=== PATIENT | female | born 2000 | race African-American/Black ===

== ENCOUNTER 2020-11-25 14:16 | Emergency (ER) | payer SELFPAY ==
[~2020-11-25] VITALS: Ht 177.8 cm; Wt 59.1 kg
[2020-11-25 14:56] LABS: BILIRUBIN,URINE NEGATIVE (NEG); CLARITY,URINE CLEAR; COLOR,URINE YELLOW; NITRITE,URINE NEGATIVE (NEG); PROTEIN,URINE NEGATIVE (NEG-TRACE); UROBILINOGEN,URINE 0.2 mg/dL (0.2 mg/dL)
[2020-11-25 15:01] LABS: RBC,URINE >40 /HPF (0-2)
[2020-11-25 15:02] LABS: BACTERIA,URINE MODERATE /HPF (0-FEW)
[2020-11-25 15:04] LABS: BARBITURATES NEG (NEG); BENZODIAZEPINES NEG (NEG); CANNABINOIDS POS (NEG); COCAINE NEG (NEG); METHADONE NEG (NEG); OPIATES NEG (NEG); PHENCYCLIDINE NEG (NEG)
[2020-11-25 15:06] LABS: AMPHETAMINE/METHAMPHETAMINE NEG (NEG)
--- NOTE | 2020-11-25 15:22 | PHYS DOC ---
Past Medical History Past Surgical History: No Surgical History Smoking Status: Never Smoker Alcohol Use: None General Adult EDM: Chief Complaint: ABDOMINAL PAIN HPI: HPI: Patient is a 20 year old female who presents with complaints of upper right and mid abdominal pain especially after she eats food but today she did not eat any food and is becoming more constant. Is been going on for least a year. She states today is just more constant. She rates her pain a 7 out of 10. She states that she has never had her gallbladder checked out. She denies nausea, vomiting, diarrhea, fever, constipation, chest pain, shortness of breath, cough, headache, dizziness, STD concerns, vaginal discharge, urinary symptoms, back pain. She does take control and she is currently on her menstrual cycle of which she states this is the second menstrual cycle of this month. Review of Systems: Review of Systems: Constitutional: Denies fever or chills. [] Eyes: Denies change in visual acuity. [] HENT: Denies nasal congestion or sore throat. [] Respiratory: Denies cough or shortness of breath. [] Cardiovascular: Denies chest pain or edema. [] GI: + abdominal pain, denies nausea, vomiting, bloody stools or diarrhea. [] : Denies dysuria. [] Musculoskeletal: Denies back pain or joint pain. [] Integument: Denies rash. [] Neurologic: Denies headache, focal weakness or sensory changes. [] Endocrine: Denies polyuria or polydipsia. [] Lymphatic: Denies swollen glands. [] Psychiatric: Denies depression or anxiety. [] Heart Score: C/O Chest Pain: No Allergies: Allergies: Allergies Coded Allergies Type Severity Reaction Last Updated Verified No Known Allergies Allergy Unknown 11/25/20 Yes Physical Exam: PE: Constitutional: Well developed, well nourished, no acute distress, non-toxic carmen earance. [] HENT: Normocephalic, atraumatic, bilateral external ears normal, oropharynx moist, no oral exudates, nose normal. [] Eyes: PERRLA, EOMI, conjunctiva normal, no discharge. [] Neck: Normal range of motion, no tenderness, supple, no stridor. [] Cardiovascular:Heart rate regular rhythm, no murmur [] Lungs & Thorax: Bilateral breath sounds clear to auscultation [] Abdomen: Bowel sounds normal, soft, right upper quadrant tenderness, no masses, no pulsatile masses. [] Skin: Warm, dry, no erythema, no rash. [] Back: No tenderness, no CVA tenderness. [] Extremities: No tenderness, no cyanosis, no clubbing, ROM intact, no edema. [] Neurologic: Alert and oriented X 3, normal motor function, normal sensory function, no focal deficits noted. [] Psychologic: Affect normal, judgement normal, mood normal. [] Current Patient Data: Labs: Laboratory Tests Test 11/25/20 14:46 11/25/20 14:50 Urine Collection Type Unknown Urine Color Yellow Urine Clarity Clear Urine pH 6.0 (<5.0-8.0) Urine Specific [place] 1.020 (1.000-1.030) Urine Protein Negative mg/dL (NEG-TRACE) Urine Glucose (UA) Negative mg/dL (NEG) Urine Ketones (Stick) Negative mg/dL (NEG) Urine Blood Large (NEG) Urine Nitrite Negative (NEG) Urine Bilirubin Negative (NEG) Urine Urobilinogen Dipstick 0.2 mg/dL (0.2 mg/dL) Urine Leukocyte Esterase Negative (NEG) Urine RBC >40 /HPF (0-2) Urine WBC 1-4 /HPF (0-4) Urine Squamous Epithelial Cells Mod /LPF Urine Bacteria Moderate /HPF (0-FEW) Urine Mucus Mod /LPF Urine Opiates Screen Neg (NEG) Urine Methadone Screen Neg (NEG) Urine Barbiturates Neg (NEG) Urine Phencyclidine Screen Neg (NEG) Urine Amphetamine/Methamphetamine Neg (NEG) Urine Benzodiazepines Screen Neg (NEG) Urine Cocaine Screen Neg (NEG) Urine Cannabinoids Screen Pos (NEG) Urine Ethyl Alcohol Neg (NEG) POC Urine HCG, Qualitative Hcg negative (Negative) Vital Signs: Vital Signs Date Time Temp Pulse Resp B/P (MAP) Pulse Ox O2 Delivery O2 Flow Rate FiO2 11/25/20 14:57 98.6 66 18 142/79 (100) 100 Room Air 98.6 EKG: EKG: [] Radiology/Procedures: Radiology/Procedures: [] Impression: [facility] [address] [place] [address] IMAGING REPORT Signed PATIENT: AZAEL CHAPARRO ACCOUNT: [id number] : 2000 LOCATION: ER AGE: 20 SEX: F EXAM STATUS: REG ER ORD. PHYSICIAN: SUJATHA STOCKTON APRN REASON: right upper and epigastric pain and nausea after eating PROCEDURE: CT ABD PELV W/ IV CONTRST ONLY EXAM: CT Abdomen and Pelvis with IV contrast CLINICAL HISTORY: right upper and epigastric pain and nausea after eating COMPARISON: none TECHNIQUE: Helical CT of the abdomen and pelvis was performed following the administration of intravenous contrast. Axial, coronal and sagittal reformatted images were generated. PQRS compliance statement - One or more of the following individualized dose reduction techniques were utilized for this study: 1. Automated exposure control 2. Adjustment of the mA and/or kV according to patient size 3. Use of iterative reconstruction technique FINDINGS: Lower Chest: Lung bases are clear. Abdomen and Pelvis: Subcentimeter hypodense hepatic dome lesion is too small to accurately characterize possibly cystic. Focal hepatic low-attenuation along the falciform ligament likely focal fatty infiltration. Gallbladder is normal. No biliary ductal dilatation. Pancreas is unremarkable. Spleen is normal in appearance. Adrenal glands are normal. Symmetric nephrograms. No focal renal lesion. No hydronephrosis. Moderate colonic stool content is seen. Appendix is normal. No small or large bowel dilatation. No bowel obstruction. Uterus and adnexa are grossly unremarkable. No free or loculated abdominal or pelvic collection. No pneumoperitoneum. No lymphadenopathy. Aorta is normal in caliber. Bones: No aggressive osseous lesion is seen. IMPRESSION: 1. No CT evidence for acute abdominal process. 2. Focal hepatic low-attenuation along the falciform ligament may represent focal fatty infiltration. 3. Moderate colonic stool content. No bowel obstruction. 4. Appendix is normal. Electronically signed by: Jensen Griffith MD (11/25/2020 4:38 PM) [facility] DICTATED and SIGNED BY: JENSEN GRIFFITH MD DATE: 11/25/20 [id number] 0 Course & Med Decision Making: Course & Med Decision Making Pertinent Labs and Imaging studies reviewed. (See chart for details) See HPI. Alert and oriented x4. Ambulatory with steady gait. Speaks in full c lear sentences. No CVA tenderness. Skin pink warm and dry. Vital signs are within normal limits. Afebrile. Mucous membranes moist. Abdomen soft but slightly tender to the right upper quadrant epigastric area. She is not guarding and there is no rigidity. Lab work unremarkable. Urinalysis shows no infection. CT abdomen pelvis shows moderate stool in the abdomen. Patient is tolerating p.o. intake. [] Dragon Disclaimer: Dragon Disclaimer: This electronic medical record was generated, in whole or in part, using a voice recognition dictation system. Departure Departure Impression: Primary Impression: Abdominal pain Qualified Codes: R10.13 - Epigastric pain Additional Impression: Constipated Qualified Codes: K59.00 - Constipation, unspecified Disposition: HOME / SELF CARE / HOMELESS Condition: STABLE Referrals: NO PCP (PCP) ALBINA HALL MD Patient Instructions: Constipation, Adult Additional Instructions: Follow-up with your primary care doctor or you can go to a GI doctor as I have referred you to. Drink plenty of fluid. Take medication as prescribed. If you begin vomiting cannot keep down fluids or you start running a fever or have worsening pain return emergency room. Scripts Famotidine (PEPCID) 20 Mg Tablet 20 MG PO BID for 7 Days, #14 TAB Prov: SUJATHA STOCKTON APRN 11/25/20 Polyethylene Glycol 3350 (MIRALAX) 17 Gm Powd.pack 1 PACKET PO DAILY for constipation for 5 Days, #5 PACKET 0 Refills dissolve in water Prov: SUJATHA STOCKTON APRN 11/25/20 SUJATHA STOCKTON APRN Nov 25, 2020 15:22
[2020-11-25] MEDS ORDERED: IV NORMAL SALINE 1000ML BAG 1,000 ML IV ONE (15:30)
[2020-11-25 15:44] LABS: BASO # 0.1 x10^3/uL (0.0-0.2); BASO % 1 % (0-3); EOS # 0.4 x10^3/uL (0.0-0.7); EOS % 5 % (0-3); HEMATOCRIT 34.8 % (36.0-47.0); HEMOGLOBIN 11.3 g/dL (12.0-15.5); LYMPH # 2.7 x10^3/uL (1.0-4.8); LYMPH % 40 % (24-48); MEAN CORPUSCULAR HEMOGLOBIN 27 pg (25-35); MEAN CORPUSCULAR HGB CONC 32 g/dL (31-37); MEAN CORPUSCULAR VOLUME 83 fL (79-100); MONO # 0.3 x10^3/uL (0.0-1.1); MONO % 4 % (0-9); NEUT # 3.4 x10^3/uL (1.8-7.7); NEUT % 50 % (31-73); PLATELET COUNT 298 x10^3/uL (140-400); RED BLOOD COUNT 4.18 x10^6/uL (3.50-5.40); RED CELL DISTRIBUTION WIDTH 16.5 % (11.5-14.5); WHITE BLOOD COUNT 6.9 x10^3/uL (4.0-11.0)
[2020-11-25] MEDS ORDERED: IOHEXOL 300 MG/ML 100ML VIAL. IV ONE (16:00)
[2020-11-25] MEDS ORDERED: CONTRAST GIVEN. MC PRN (16:00)
[2020-11-25 16:02] LABS: CALCIUM 8.5 mg/dL (8.5-10.1); CREATININE 0.9 mg/dL (0.6-1.0); GFR 95.6; POTASSIUM 3.8 mmol/L (3.5-5.1)
[2020-11-25 16:12] LABS: ALBUMIN 3.7 g/dL (3.4-5.0); ALBUMIN/GLOBULIN RATIO 0.9 (1.0-1.7); TOTAL BILIRUBIN 0.5 mg/dL (0.2-1.0); TOTAL PROTEIN 7.6 g/dL (6.4-8.2)
[2020-11-25 16:40] VITALS: BP 116/68
--- NOTE | 2020-11-25 16:40 | RAD ---
EXAM: CT Abdomen and Pelvis with IV contrast CLINICAL HISTORY: right upper and epigastric pain and nausea after eating COMPARISON: none TECHNIQUE: Helical CT of the abdomen and pelvis was performed following the administration of intrave nous contrast. Axial, coronal and sagittal reformatted images were generated. PQRS compliance statement - One or more of the following individualized dose reduction techniques wer e utilized for this study: 1. Automated exposure control 2. Adjustment of the mA and/or kV according to patient size 3. Use of iterative reconstruction technique FINDINGS: Lower Chest: Lung bases are clear. Abdomen and Pelvis: Subcentimeter hypodense hepatic dome lesion is too small to accurately characterize possibly cystic. Focal hepatic low-attenuation along the falciform ligament likely focal fatty infiltration. Gallbladd er is normal. No biliary ductal dilatation. Pancreas is unremarkable. Spleen is normal in appearance. Adrenal glands are normal. Symmetric nephrograms. No focal renal lesion. No hydronephrosis. Moderate colonic stool content is seen. Appendix is normal. No small or large bowel dilatation. No michi wel obstruction. Uterus and adnexa are grossly unremarkable. No free or loculated abdominal or pelvic collection. No pneumoperitoneum. No lymphadenopathy. Aorta i s normal in caliber. Bones: No aggressive osseous lesion is seen. IMPRESSION: 1. No CT evidence for acute abdominal process. 2. Focal hepatic low-attenuation along the falciform ligament may represent focal fatty infiltration . 3. Moderate colonic stool content. No bowel obstruction. 4. Appendix is normal. Electronically signed by: Jensen Dhillon MD (11/25/2020 4:38 PM) [facility]
[2020-11-25] MEDS ORDERED: POLY17PO29 PO (16:49)
[2020-11-25] MEDS ORDERED: FAMO-63 PO (16:50)
== END 2020-11-25 17:02 | disposition home or self-care (01) ==
LOC: ER 14:40
DX: K59.00 Constipation, unspecified (principal); R10.13 Epigastric pain
CPT/HCPCS: 36415; 74177; 80053; 80307; 81001; 81025; 83690; 85025; 87086; 96360; 99285; J7030; Q9967

== ENCOUNTER 2021-04-08 14:15 | Emergency (ER) | payer SELFPAY ==
[~2021-04-08] VITALS: Ht 147.3 cm; Wt 59.6 kg
[~2021-04-08 14:15] MED LIST: FAMO-63 PO; POLY17PO29 PO
[2021-04-08] MEDS ORDERED: KETOROLAC 15 MG/ML VIAL. IVP ONE (15:45)
[2021-04-08] MEDS ORDERED: IV NORMAL SALINE 1000ML BAG 1,000 ML IV ONE (15:45)
[2021-04-08 15:56] LABS: BILIRUBIN,URINE NEGATIVE (NEG); CLARITY,URINE HAZY; COLOR,URINE YELLOW; NITRITE,URINE NEGATIVE (NEG); PROTEIN,URINE NEGATIVE (NEG-TRACE); UROBILINOGEN,URINE 0.2 mg/dL (0.2 mg/dL)
[2021-04-08 15:58] LABS: BACTERIA,URINE MODERATE /HPF (0-FEW)
--- NOTE | 2021-04-08 16:41 | PHYS DOC ---
Past Medical History Past Medical History: No Pertinent History Past Surgical History: No Surgical History Smoking Status: Never Smoker Alcohol Use: None General Adult EDM: Chief Complaint: ABDOMINAL PAIN HPI: HPI: Patient is a 20 year old female who presents with low abdominal pain that began this morning. Patient states she was at work, and felt the need to defecate. Patient states that she passed a normal bowel movement and urinated, which was followed by 10/10 lower abdominal pain. Patient states the pain was so intense that she was unable to move or walk. Patient reports the pain radiates to her low back. She denies nausea, vomiting, diarrhea, constipation, bloody stool, dysuria, hematuria, vaginal pain. Review of Systems: Review of Systems: Constitutional: Denies fever, chills or generalized weakness Eyes: Denies change in visual acuity, visual field deficits or discharge HENT: Denies ear pain, nasal congestion or sore throat Respiratory: Denies cough or shortness of breath Cardiovascular: Denies chest pain, palpitations or edema GI: See HPI : See HPI Musculoskeletal: Denies back pain or joint pain Integument: Denies rash or other skin lesion Neurologic: Denies headache, focal weakness or sensory changes Heart Score: C/O Chest Pain: No Current Medications: Current Medications Medications (Trade) Dose Ordered Sig/Lazara Start Time Stop Time Status Last Admin Dose Admin Ketorolac Tromethamine (Toradol 15mg Vial) 15 mg 1X ONCE 04/08/21 15:45 04/08/21 15:46 DC Sodium Chloride 1,000 ml @ 1,000 mls/hr 1X ONCE 04/08/21 15:45 04/08/21 16:44 Allergies: Allergies: Allergies Coded Allergies Type Severity Reaction Last Updated Verified Sulfa (Sulfonamide Antibiotics) Allergy Intermediate Hives 04/08/21 Yes Physical Exam: PE: Constitutional: Well developed, well nourished, no acute distress, non-toxic appearance. HENT: Normocephalic, atraumatic, bilateral external ears normal, nose normal. Eyes: EOMI, conjunctiva normal, no discharge. Neck: Normal range of motion, no stridor. Abdomen: Bowel sounds normal, soft, central suprapubic tenderness without rebound or guarding, no masses, no pulsatile masses. Skin: Warm, dry, no erythema, no rash. Back: No step-off, no tenderness, no CVA tenderness. Extremities: No obvious deformity, no cyanosis, no clubbing, ROM intact, no edema. Neurologic: Alert and oriented x4, no focal deficits noted. Current Patient Data: Labs: Laboratory Tests Test 04/08/21 15:42 04/08/21 15:49 04/08/21 17:30 Urine Collection Type Unknown Urine Color Yellow Urine Clarity Hazy Urine pH 6.0 (<5.0-8.0) Urine Specific [place] 1.025 (1.000-1.030) Urine Protein Negative mg/dL (NEG-TRACE) Urine Glucose (UA) Negative mg/dL (NEG) Urine Ketones (Stick) Trace mg/dL (NEG) Urine Blood Negative (NEG) Urine Nitrite Negative (NEG) Urine Bilirubin Negative (NEG) Urine Urobilinogen Dipstick 0.2 mg/dL (0.2 mg/dL) Urine Leukocyte Esterase Trace (NEG) Urine RBC 3-5 /HPF (0-2) Urine WBC 1-4 /HPF (0-4) Urine Bacteria Moderate /HPF (0-FEW) Bedside Urine HCG, Qualitative Hcg negative (Negative) White Blood Count 5.6 x10^3/uL (4.0-11.0) Red Blood Count 3.86 x10^6/uL (3.50-5.40) Hemoglobin 10.8 g/dL (12.0-15.5) Hematocrit 33.2 % (36.0-47.0) Mean Corpuscular Volume 86 fL (79-100) Mean Corpuscular Hemoglobin 28 pg (25-35) Mean Corpuscular Hemoglobin Concent 32 g/dL (31-37) Red Cell Distribution Width 16.8 % (11.5-14.5) Platelet Count 244 x10^3/uL (140-400) Neutrophils (%) (Auto) 45 % (31-73) Lymphocytes (%) (Auto) 45 % (24-48) Monocytes (%) (Auto) 7 % (0-9) Eosinophils (%) (Auto) 3 % (0-3) Basophils (%) (Auto) 1 % (0-3) Neutrophils # (Auto) 2.5 x10^3/uL (1.8-7.7) Lymphocytes # (Auto) 2.5 x10^3/uL (1.0-4.8) Monocytes # (Auto) 0.4 x10^3/uL (0.0-1.1) Eosinophils # (Auto) 0.1 x10^3/uL (0.0-0.7) Basophils # (Auto) 0.1 x10^3/uL (0.0-0.2) Sodium Level 141 mmol/L (136-145) Potassium Level 3.9 mmol/L (3.5-5.1) Chloride Level 104 mmol/L (98-107) Carbon Dioxide Level 26 mmol/L (21-32) Anion Gap 11 (6-14) Blood Urea Nitrogen 9 mg/dL (7-20) Creatinine 1.0 mg/dL (0.6-1.0) Estimated GFR (Cockcroft-Gault) 84.7 BUN/Creatinine Ratio 9 (6-20) Glucose Level 78 mg/dL (70-99) Calcium Level 8.6 mg/dL (8.5-10.1) Total Bilirubin 0.4 mg/dL (0.2-1.0) Aspartate Amino Transf (AST/SGOT) 10 U/L (15-37) Alanine Aminotransferase (ALT/SGPT) 19 U/L (14-59) Alkaline Phosphatase 56 U/L (46-116) Total Protein 7.4 g/dL (6.4-8.2) Albumin 3.9 g/dL (3.4-5.0) Albumin/Globulin Ratio 1.1 (1.0-1.7) Lipase 38 U/L (73-393) Vital Signs: Vital Signs Date Time Temp Pulse Resp B/P (MAP) Pulse Ox O2 Delivery O2 Flow Rate FiO2 04/08/21 14:15 98.0 83 16 112/54 (73) 99 Room Air 98.0 Radiology/Procedures: Radiology/Procedures: PROCEDURE: CT ABDOMEN PELVIS WO CONTRAST CT ABDOMEN+PELVIS WO History: Lower abdominal and low back pain. Comparison: CT abdomen and pelvis 11/25/2020 Technique: CT abdomen and pelvis without contrast. Findings: The lung bases are clear. The liver, gallbladder, pancreas, spleen, adrenal glands, and kidneys are unremarkable. The stomach and small bowel is unremarkable. The appendix is within normal limits. No colonic wall thickening or pericolonic inflammatory changes. The bladder is unremarkable. Uterus is normal in appearance there is a small pelvic fluid collection. No free intraperitoneal air. The unenhanced vasculature is unremarkable. No adenopathy. Soft tissues are within normal limits. The osseous structures are normal. Impression: 1. Small pelvic free fluid may be physiologic. Otherwise no significant abnormality in the abdomen and pelvis. ------ Exposure: One or more of the following individualized dose reduction techniques were utilized for this examination: 1. Automated exposure control 2. Adjustment of the mA and/or kV according to patient size 3. Use of iterative reconstruction technique. Electronically signed by: David Locke MD (04/08/2021 4:40 PM) [id number] Course & Med Decision Making: Course & Med Decision Making Pertinent Labs and Imaging studies reviewed. (See chart for details) Patient is a 20-year-old female who presents with low abdominal/suprapubic pain radiating to her low back that began this morning. Patient noticed pain after she used the restroom, urinating and passing BM. Work-up today will include urinalysis, labs, CT abdomen pelvis plain. Work-up today reveals no kidney stone. Patient will be treated for cystitis. She states she is having trouble taking pills recently, as they make her gag. She will be given 1 g Rocephin here in the emergency department. I did still send prescription for Macrobid 5-day course, but Rocephin should offer good coverage if she is not able to take p.o. antibiotics. Return precautions provided. Patient understands and is agreeable to discharge plan. Jose Disclaimer: Jose Disclaimer: This electronic medical record was generated, in whole or in part, using a voice recognition dictation system. Departure Departure Impression: Primary Impression: Urinary tract infection without complication Disposition: 01 HOME / SELF CARE / HOMELESS Condition: STABLE Referrals: NO PCP (PCP) Patient Instructions: Urinary Tract Infection, [id number] Additional Instructions: EMERGENCY DEPARTMENT GENERAL DISCHARGE INSTRUCTIONS Thank you for coming to [facility] Emergency Department (ED) today and trusting us with you care. We trust that you had a positive experience in our Emergency Department. If you wish to speak to the department management, you may call the director at . YOUR FOLLOW UP INSTRUCTIONS ARE FOLLOWS: 1. Follow up with your primary care doctor. If you do not have a primary doctor, please ask for a resource list of physicians or clinics that may be able to assist you with follow up care. 2. The emergency provider has interpreted your imaging studies, if any were ordered. The radiology shredding specialist also reviewed them. If there is a change in the findings, you will be notified in 48 hours when at all possible. 3. If a lab test or culture has been done, your results will be reviewed and you will be notified if you need a change in treatment. 4. Follow instructions verbalized to you and refer to the printouts if needed. ADDITIONAL INSTRUCTIONS AND INFORMATION: 1. Your care today has been supervised by a physician who is specially trained in emergency care. Many problems require more than one evaluation for a complete diagnosis and treatment. We recommend that you schedule your follow up appointment as recommended to ensure complete treatment of you illness or injury. If you are unable to obtain follow up care and continue to have a problem, or if your condition worsens, we recommend that you return to the ED. 2. We are not able to safely determine your condition over the phone nor are we able to give sound medical advice over the phone. For these safety reasons, if you call for medical advice we will ask you to come to the ED for further evaluation. 3. If you have any questions regarding these discharge instructions please call the ED at . SAFETY INFORMATION: In the interest of safety, wellness, and injury prevention; we encourage you to wear your seat belt, if you smoke; quite smoking, and we encourage family to use a protective helmet for bicycling and other sporting events that present an increased risk for head injury. IF YOUR SYMPTOMS WORSEN OR NEW SYMPTOMS DEVELOP, OR YOU HAVE CONCERNS ABOUT YOUR CONDITION; OR IF YOUR CONDITION WORSENS WHILE YOU ARE WAITING FOR YOUR FOLLOW UP APPOINTMENT; EITHER CONTACT YOUR PRIMARY CARE DOCTOR, THE PHYSICIAN WHOSE NAME AND NUMBER YOU WERE GIVEN, OR RETURN TO THE ED IMMEDIATELY. Scripts Nitrofurantoin Monohyd/M-Cryst (MACROBID 100 MG CAPSULE) 100 Mg Capsule 1 CAP PO BID for 5 Days, #10 CAP 0 Refills Prov: CARMELLA ELDRIDGE 04/08/21 CARMELLA ELDRIDGE Apr 08, 2021 16:41
--- NOTE | 2021-04-08 16:42 | RAD ---
CT ABDOMEN+PELVIS WO History: Lower abdominal and low back pain. Comparison: CT abdomen and pelvis 11/25/2020 Technique: CT abdomen and pelvis without contrast. Findings: The lung bases are clear. The liver, gallbladder, pancreas, spleen, adrenal glands, and kidneys are u nremarkable. The stomach and small bowel is unremarkable. The appendix is within normal limits. No colonic wall th ickening or pericolonic inflammatory changes. The bladder is unremarkable. Uterus is normal in appearance there is a small pelvic fluid collection. No free intraperitoneal air. The unenhanced vasculature is unremarkable. No adenopathy. Soft tissues are within normal limits. The osseous structures are normal. Impression: 1. Small pelvic free fluid may be physiologic. Otherwise no significant abnormality in the abdomen a nd pelvis. ------ Exposure: One or more of the following individualized dose reduction techniques were utilized for thi s examination: 1. Automated exposure control 2. Adjustment of the mA and/or kV according to patient size 3. Use of iterative reconstruction technique. Electronically signed by: David Locke MD (04/08/2021 4:40 PM) [id number]
[2021-04-08 17:36] LABS: BASO # 0.1 x10^3/uL (0.0-0.2); BASO % 1 % (0-3); EOS # 0.1 x10^3/uL (0.0-0.7); EOS % 3 % (0-3); HEMATOCRIT 33.2 % (36.0-47.0); HEMOGLOBIN 10.8 g/dL (12.0-15.5); LYMPH # 2.5 x10^3/uL (1.0-4.8); LYMPH % 45 % (24-48); MEAN CORPUSCULAR HEMOGLOBIN 28 pg (25-35); MEAN CORPUSCULAR HGB CONC 32 g/dL (31-37); MEAN CORPUSCULAR VOLUME 86 fL (79-100); MONO # 0.4 x10^3/uL (0.0-1.1); MONO % 7 % (0-9); NEUT # 2.5 x10^3/uL (1.8-7.7); NEUT % 45 % (31-73); PLATELET COUNT 244 x10^3/uL (140-400); RED BLOOD COUNT 3.86 x10^6/uL (3.50-5.40); RED CELL DISTRIBUTION WIDTH 16.8 % (11.5-14.5); WHITE BLOOD COUNT 5.6 x10^3/uL (4.0-11.0)
[2021-04-08 17:52] LABS: CALCIUM 8.6 mg/dL (8.5-10.1); GFR 84.7; POTASSIUM 3.9 mmol/L (3.5-5.1)
[2021-04-08 17:56] LABS: ALBUMIN 3.9 g/dL (3.4-5.0); ALBUMIN/GLOBULIN RATIO 1.1 (1.0-1.7); TOTAL BILIRUBIN 0.4 mg/dL (0.2-1.0); TOTAL PROTEIN 7.4 g/dL (6.4-8.2)
[2021-04-08] MEDS ORDERED: NITR100C62 PO (18:20)
[2021-04-08] MEDS ORDERED: cefTRIAXone IV Push 1 GM VIAL. IVP ONE (19:00)
[2021-04-08 19:35] VITALS: BP 122/79
== END 2021-04-08 19:20 | disposition home or self-care (01) ==
LOC: ER 14:15
DX: N39.0 Urinary tract infection, site not specified (principal); Z88.2 Allergy status to sulfonamides
CPT/HCPCS: 36415; 74176; 80053; 81001; 81025; 83690; 85025; 87086; 96361; 96374; 96375; 99284; J0696; J1885; J7030